=== PATIENT | female | born 1990 | race Caucasian/White ===

== ENCOUNTER 2020-05-28 21:43 | Emergency (ER) | payer SELFPAY ==
[2020-05-28 22:09] VITALS: BP 182/111; PULSE 64; RESP 17; TEMP 36.6; O2SAT 99; BMI 23.0
--- NOTE | 2020-05-28 22:27 | W.ED.ABDPA2 ---
HPI - Abdominal Pain General: Chief Complaint: Abdominal Pain Stated Complaint: abd pain Time Seen by Provider: 05/28/20 22:27 History of Present Illness: HPI narrative: Patient is a 30-year-old female comes to the ED with abdominal pain, nausea and vomiting. Symptoms started at 3:00 this morning. She said it woke her up she had 10 out of 10 abdominal pain in the right and left lower quadrants of the abdomen. Patient says the pain radiates to her back. Patient also has not been able to eat eat or drink or keep anything down. She has had multiple episodes of emesis. Patient says she has a past medical history of IV meth use and was just recently treated for infection at IV drugs today. Denies fever, chills, chest pain, shortness of breath, dysuria, hematuria, vaginal bleeding, vaginal discharge, diarrhea, constipation or blood in stool. Denies any chance of being and says she had her tubes tied after her last . just finished her period a couple days ago. Associated Symptoms: Reports nausea and vomiting; Denies chills, constipation, diarrhea, dysuria, fever(s), hematochezia and hematuria Related Data: Date of Last Menstrual Period: 05/21/20 Review of Systems Const: Denies: fever(s), chills or fatigue Eyes: Denies: change in vision or eye discomfort ENMT: Denies: throat pain, odynophagia, nasal discharge or nasal congestion Card: Denies: chest pain, palpitations, edema, swelling of feet/ankles, dyspnea on exertion or orthopnea Resp: Denies: dyspnea, productive cough or non-productive cough GI: Reports: abdominal pain (lower abdomen and radiates to back), nausea and vomiting; Denies: diarrhea, constipation or hematochezia : Denies: flank pain, dysuria or hematuria Musc: Denies: neck pain, back pain or extremity swelling Skin/Breast: Denies: rash or new lesions Neuro: Denies: headache(s), numbness in extremities or weakness in extremities [facility] ED Female Reproductive History: Date of last menstrual period: 05/21/20 Physical Exam Const: COMMON NORMALS: patient oriented x3 and alert GENERAL APPEARANCE: cooperative; not comfortable (Patient appears uncomfortable due to abdominal pain.) HENMT: COMMON NORMALS: normocephalic HEAD & SCALP: normocephalic MOUTH: Normal oral and palatal mucosa present THROAT: posterior oropharynx normal and uvula midline Eye: COMMON NORMALS: Equal, round and reactive pupils present PUPIL: Yes Equal, round and reactive pupils present Neck/C-Spine: COMMON NORMALS: supple GENERAL: Yes normal visual inspection Resp: COMMON NORMALS: normal respiratory effort, No retractions, No use of accessory muscles and clear to auscultation bilaterally EFFORT & INSPECTION: Yes able to speak in complete sentences, No respiratory distress and No labored AUSCULTATION: clear to auscultation bilaterally Cardio: COMMON NORMALS: regular rate, regular rhythm, S1 normal heart sound present, S2 normal heart sound present, No gallops present (Cardio), No clicks present (Cardio), No murmurs present (Cardio) and Peripheral pulses 2+ throughout RATE: regular rate RHYTHM: regular rhythm HEART SOUNDS: S1 normal heart sound present and S2 normal heart sound present PERIPHERAL PULSES: Peripheral pulses 2+ throughout GI: COMMON NORMALS: Normal to inspection, nondistended, normoactive bowel sounds present, Soft to palpation and no masses PALPATION: Yes Soft to palpation and Yes Tenderness to palpation present (GI) Details: LLQ and RLQ : COMMON NORMALS: Yes no CVA tenderness BLADDER/KIDNEY EXAM: Yes no CVA tenderness Back/Pelvis: COMMON NORMALS: no CVA tenderness Extremity: COMMON NORMALS: normal to inspection and no pedal edema Neuro: COMMON NORMALS: patient oriented x3 SENSORIUM/ORIENTATION: Yes alert GAIT: Yes Normal gait present Skin: GENERAL SKIN EXAM: dry skin Course Reevaluation(s): Reevaluation #1: After patient received IV meds and fluids she was feeling a lot better and her symptoms completely resolved. Patient ready to go home and rest. Vital Signs: Vital signs: Vital Signs Temperature 97.8 F 05/28/20 22:09 Pulse Rate 64 05/28/20 22:09 Respiratory Rate 20 H 05/29/20 00:20 Blood Pressure 182/111 05/28/20 22:09 Pulse Oximetry 98 05/29/20 00:20 MDM - Abdominal Pain MDM Narrative: Medical decision making narrative: Patient is a 30-year-old female who comes to the ED with lower abdominal pain nausea vomiting. Physical exam shows the patient appears to be in some pain and discomfort with mild tenderness upon palpation of the lower abdomen. CBC, CMP and UA were unremarkable. Lipase 32, hCG negative. CT of the abdomen showed no acute findings. Patient was given IV fluids, Zofran and half a milligram of Dilaudid and her symptoms completely resolved. Patient feels a lot better and is ready to go home and rest. Patient was diagnosed with abdominal pain and sent home with a prescription for Zofran to help with any nausea. Return to ED precautions given. Patient understood and agreed with plan. Follow-up with PCP in 7 to 10 days. Lab Data: Attestation: I reviewed the patient's lab results. Labs: Lab Results 05/29/20 05/29/20 05/29/20 Range/Units 01:05 01:05 01:05 WBC 9.8 (4.0-10.0) 10^3/ uL RBC 4.18 (4.1-5.3) 10^6/u L Hgb 12.3 (11.5-15.3) g/dL Hct 42.3 (37.0-47.0) % MCV 101.2 H (81-99) fL MCH 29.4 (28.0-34.0) pg MCHC 29.1 L (30.0-36.0) g/dL RDW 13.2 (12.1-15.1) % Plt Count 306 (130-400) 10^3/c mm MPV 10.0 (7.4-10.4) fL Neut % (Auto) 62.2 % Lymph % (Auto) 30.4 % Morgan % (Auto) 5.6 % Eos % (Auto) 1.1 % Baso % (Auto) 0.4 % Neut # (Auto) 6.12 (1.8-7.7) 10^3/u L Lymph # (Auto) 3.0 (0.8-4.8) 10^3/u L Morgan # (Auto) 0.6 (0.2-0.9) 10^3/u L Eos # (Auto) 0.1 (0.0-0.8) 10^3/u L Baso # (Auto) 0.0 (0.0-0.1) 10^3/u L Nucleated RBC % (a uto) 0 % Nucleated RBCs # 0.0 /100WBC Sodium 138 (136-145) mmol/L Potassium 3.9 (3.5-5.1) mmol/L Chloride 107 (98-107) mmol/L Carbon Dioxide 20 L (22-29) mmol/L Anion Gap 14.9 (5-19) BUN 11 (6-20) mg/dL Creatinine 0.7 (0.5-0.9) mg/dL GFR Calculation 99.6 (90-130) mL/min Glucose 94 (65-115) mg/dL Calculated Osmolal ity 282 L (285-295) mOsm/k g Calcium 8.7 (8.5-10.5) mg/dL Total Bilirubin 0.2 (0.15-1.2) mg/dL AST 14 (0-32) U/L ALT 20 (0-33) U/L Alkaline Phosphata se 106 H (35-105) IU/L Total Protein 5.9 L (6.6-8.7) g/dL Albumin 3.7 (3.5-5.2) g/dL Globulin 2.2 (1.3-4.6) g/dL Lipase 32 (13-60) U/L HCG, Qual Negative (Negative) Urine Color (Yellow) Urine Appearance (CLEAR) Urine pH (5-7) Ur Specific Gravit y (1.005-1.030) Urine Protein (Negative) Urine Glucose (UA) (Normal) Urine Ketones (Negative) Urine Blood (Negative) Urine Nitrate (Negative) Urine Bilirubin (NEGATIVE) Urine Urobilinogen (Negative) mg/dL Ur Leukocyte Elsa ase (Negative) 05/29/20 Range/Units 01:05 WBC (4.0-10.0) 10^3/ uL RBC (4.1-5.3) 10^6/u L Hgb (11.5-15.3) g/dL Hct (37.0-47.0) % MCV (81-99) fL MCH (28.0-34.0) pg MCHC (30.0-36.0) g/dL RDW (12.1-15.1) % Plt Count (130-400) 10^3/c mm MPV (7.4-10.4) fL Neut % (Auto) % Lymph % (Auto) % Morgan % (Auto) % Eos % (Auto) % Baso % (Auto) % Neut # (Auto) (1.8-7.7) 10^3/u L Lymph # (Auto) (0.8-4.8) 10^3/u L Morgan # (Auto) (0.2-0.9) 10^3/u L Eos # (Auto) (0.0-0.8) 10^3/u L Baso # (Auto) (0.0-0.1) 10^3/u L Nucleated RBC % (a uto) % Nucleated RBCs # /100WBC Sodium (136-145) mmol/L Potassium (3.5-5.1) mmol/L Chloride (98-107) mmol/L Carbon Dioxide (22-29) mmol/L Anion Gap (5-19) BUN (6-20) mg/dL Creatinine (0.5-0.9) mg/dL GFR Calculation (90-130) mL/min Glucose (65-115) mg/dL Calculated Osmolal ity (285-295) mOsm/k g Calcium (8.5-10.5) mg/dL Total Bilirubin (0.15-1.2) mg/dL AST (0-32) U/L ALT (0-33) U/L Alkaline Phosphata se (35-105) IU/L Total Protein (6.6-8.7) g/dL Albumin (3.5-5.2) g/dL Globulin (1.3-4.6) g/dL Lipase (13-60) U/L HCG, Qual (Negative) Urine Color Yellow (Yellow) Urine Appearance Clear (CLEAR) Urine pH 6.5 (5-7) Ur Specific Gravit y 1.010 (1.005-1.030) Urine Protein Neg (Negative) Urine Glucose (UA) Norm (Normal) Urine Ketones Negative (Negative) Urine Blood Neg (Negative) Urine Nitrate Negative (Negative) Urine Bilirubin Neg (NEGATIVE) Urine Urobilinogen Norm (Negative) mg/dL Ur Leukocyte Elsa ase Negative (Negative) Imaging Data ^: CT Abd/Pel: Attestation: I personally reviewed and interpreted this imaging study as follows: Radiologist's impression: [address] [address] [address] Scan Report Signed Patient: Katherine Issa Unit #[id number] : 1990 [id number] Age/Sex: 30 / F ADM Date: 05/28/20 Loc: ER Room/Bed: Attending Dr: Ordering Provider/Ordering MD: Leif Good Date of Service: 05/28/20 Procedure(s): CT abdomen pelvis w con* [id number] Accession Number(s): [id number] Report Number: [id number] PROCEDURE INFORMATION: Exam: CT Abdomen And Pelvis With Contrast Exam date and time: 05/28/2020 11:11 PM Age: 30 years old Clinical indication: Nausea and vomiting; Abdominal pain; Generalized; Prior surgery; Surgery type: Cholecystectomy, c-sections x 3; Additional info: Abdominal pain, n/v TECHNIQUE: Imaging protocol: Computed tomography of the abdomen and pelvis with intravenous contrast. Radiation optimization: All CT scans at this facility use at least one of these dose optimization techniques: automated exposure control; mA and/or kV adjustment per patient size (includes targeted exams where dose is matched to clinical indication); or iterative reconstruction. Contrast material: OMNI 300; Contrast volume: 95 ml; Contrast route: INTRAVENOUS (IV); COMPARISON: No relevant prior studies available. RADIATION DOSE METRICS: Total DLP (mGy-cm): 524.19 FINDINGS: Lungs: The lung bases are clear. Liver: The liver appears borderline/mildly enlarged, with right lobe length of about 20 cm. No definite/significant focal hepatic abnormality. Gallbladder and bile ducts: Prior cholecystectomy, no significant biliary tree dilation. Pancreas: Unremarkable. Spleen: Unremarkable. Adrenals: Unremarkable. Kidneys and ureters: Unremarkable. Stomach and bowel: The stomach appears somewhat distended at the time of scanning. Please correlate clinically. There are no CT findings to strongly suggest diverticulitis. Appendix: The appendix is visualized and appears normal. Intraperitoneal space: No free air, ascites, or bowel distention. Vasculature: No evidence for abdominal aortic aneurysm. Lymph nodes: No retroperitoneal adenopathy. Bladder: Unremarkable as visualized. Reproductive: No definite ovarian/adnexal cyst or mass by CT. Moderately prominent vessels in both adnexal regions. This is a nonspecific appearance, pelvic congestion syndrome might be considered. Please correlate clinically. Bones/joints: No significant acute finding. Soft tissues: No significant acute finding. CT/CT abdomen pelvis w con* [id number] IMPRESSION: 1. Normal appendix. 2. No free air or bowel distention. No evidence for bowel obstruction. 3. Somewhat distended stomach. 4. No definite ovarian/adnexal cyst or mass by CT. Moderately prominent vessels in both adnexal regions, see above. 5. Other findings discussed above. Radiation Dose CTDIVOL = (mGy): DLP = 524.19 (mGy-cm) Dictated By: Lul Cunningham MD Signed By: Lul Cunningham MD Signed Date/Time: 05/29/20130 DD/ 9 Discharge Plan Discharge Patient Disposition: Home Clinical Impression: Abdominal pain Qualifiers: Abdominal location: lower abdomen, unspecified Qualified Code(s): R10.30 - Lower abdominal pain, unspecified Condition: Stable Prescriptions: New Zofran 4 mg tablet 4 mg PO Q8H PRN (Reason: nausea and vomiting) Qty: 20 RF: 0 Discharge Orders: Discharge Order (Routine); Ordered 05/29/20 Ordered By: Leif Good Discharge Diet: Regular Discharge Activity: Increase activity as tolerated Patient Instructions: Abdominal Pain (ED) Activity Restrictions/Additional Instructions: Follow-up with medical provider as directed in 7-10 days. Take ibuprofen or Tylenol for any pain. Take prescribed Zofran as needed for any nausea. Drink plenty of fluids and stay hydrated. Return to the ER or your medical provider if condition worsens. Please read and understand discharge instructions. If any questions, please ask. Coding Level of Care Code ED Anaesthetic Technician for Paul Fwd Exam Comprehensive
--- NOTE | 2020-05-28 22:48 | CTR_ITS ---
PROCEDURE INFORMATION: Exam: CT Abdomen And Pelvis With Contrast Exam date and time: 05/28/2020 11:11 PM Age: 30 years old Clinical indication: Nausea and vomiting; Abdominal pain; Generalized; Prior surgery; Surgery type: Cholecystectomy, c-sections x 3; Additional info: Abdominal pain, n/v TECHNIQUE: Imaging protocol: Computed tomography of the abdomen and pelvis with intravenous contrast. Radiation optimization: All CT scans at this facility use at least one of these dose optimization techniques: automated exposure control; mA and/or kV adjustment per patient size (includes targeted exams where dose is matched to clinical indication); or iterative reconstruction. Contrast material: OMNI 300; Contrast volume: 95 ml; Contrast route: INTRAVENOUS (IV); COMPARISON: No relevant prior studies available. RADIATION DOSE METRICS: Total DLP (mGy-cm): 524.19 FINDINGS: Lungs: The lung bases are clear. Liver: The liver appears borderline/mildly enlarged, with right lobe length of about 20 cm. No definite/significant focal hepatic abnormality. Gallbladder and bile ducts: Prior cholecystectomy, no significant biliary tree dilation. Pancreas: Unremarkable. Spleen: Unremarkable. Adrenals: Unremarkable. Kidneys and ureters: Unremarkable. Stomach and bowel: The stomach appears somewhat distended at the time of scanning. Please correlate clinically. There are no CT findings to strongly suggest diverticulitis. Appendix: The appendix is visualized and appears normal. Intraperitoneal space: No free air, ascites, or bowel distention. Vasculature: No evidence for abdominal aortic aneurysm. Lymph nodes: No retroperitoneal adenopathy. Bladder: Unremarkable as visualized. Reproductive: No definite ovarian/adnexal cyst or mass by CT. Moderately prominent vessels in both adnexal regions. This is a nonspecific appearance, pelvic congestion syndrome might be considered. Please correlate clinically. Bones/joints: No significant acute finding. Soft tissues: No significant acute finding. CT/CT abdomen pelvis w con* [id number] IMPRESSION: 1. Normal appendix. 2. No free air or bowel distention. No evidence for bowel obstruction. 3. Somewhat distended stomach. 4. No definite ovarian/adnexal cyst or mass by CT. Moderately prominent vessels in both adnexal regions, see above. 5. Other findings discussed above. Radiation Dose CTDIVOL = (mGy): DLP = 524.19 (mGy-cm)
[2020-05-29] MEDS: sodium chloride 0.9% 1,000 ML 999 ML IV (00:05)
[2020-05-29] MEDS: ondansetron 2 mg/ML SDV 2 mL 4 MG IVP (00:10)
[2020-05-29 00:20] VITALS: RESP 20; O2SAT 98
[2020-05-29] MEDS: HYDROmorphone 1 mg/mL INJ 1 mL 0.5 MG IVP (00:20)
[2020-05-29] MEDS: iohexol 300 mg/mL 100 mL Btl IV (00:42)
[2020-05-29 01:00] VITALS: BP 134/92; PULSE 87; RESP 16; O2SAT 97
[2020-05-29 01:36] LABS: Basophils % 0.4 %; Eosinophils # 0.1 10^3/uL (0.0-0.8); Eosinophils % 1.1 %; Hematocrit 42.3 % (37.0-47.0); Hemoglobin 12.3 g/dL (11.5-15.3); Lymphocytes % 30.4 %; Mean Corpuscular HGB Conc 29.1 g/dL (30.0-36.0); Mean Corpuscular Hemoglobin 29.4 pg (28.0-34.0); Mean Corpuscular Volume 101.2 fL (81-99); Monocytes # 0.6 10^3/uL (0.2-0.9); Monocytes % 5.6 %; Neutrophils # 6.12 10^3/uL (1.8-7.7); Neutrophils % 62.2 %; Nucleated Red Blood Cells % 0 %; Platelet Count 306 10^3/cmm (130-400); Red Blood Count 4.18 10^6/uL (4.1-5.3); Red Cell Distribution Width 13.2 % (12.1-15.1); White Blood Count 9.8 10^3/uL (4.0-10.0)
[2020-05-29 01:40] LABS: Add Urine Microscopic? NO
[2020-05-29 01:43] VITALS: BP 148/98; PULSE 87; RESP 18; O2SAT 98
[2020-05-29 01:49] LABS: Alanine Aminotransferase 20 U/L (0-33); Albumin Level 3.7 g/dL (3.5-5.2); Alkaline Phosphatase 106 IU/L (35-105); Anion Gap 14.9 (5-19); Aspartate Amino Transferase 14 U/L (0-32); Blood Urea Nitrogen 11 mg/dL (6-20); Calcium 8.7 mg/dL (8.5-10.5); Carbon Dioxide 20 mmol/L (22-29); Chloride 107 mmol/L (98-107); Globulin 2.2 g/dL (1.3-4.6); Glomerular Filtration Rate 99.6 mL/min (90-130); Glucose 94 mg/dL (65-115); Lipase 32 U/L (13-60); Osmolality Calculated 282 mOsm/kg (285-295); Potassium 3.9 mmol/L (3.5-5.1); Sodium 138 mmol/L (136-145); Total Bilirubin 0.2 mg/dL (0.15-1.2); Total Protein 5.9 g/dL (6.6-8.7)
[2020-05-29 01:56] LABS: Bilirubin Urine Neg (NEGATIVE); Blood Urine Neg (Negative); Glucose Urine UA Norm (Normal); Ketones Urine Negative (Negative); Leukocyte Esterase Urine Negative (Negative); Nitrate Urine Negative (Negative); Protein Urine Neg (Negative); Urine Appearance Clear (CLEAR); Urine Color Yellow (Yellow); pH Urine 6.5 (5-7)
[2020-05-29 01:57] LABS: HCG, Serum Qual Negative (Negative); Urobilinogen Urine Norm (Negative)
[2020-05-29 02:00] VITALS: BP 137/93; PULSE 88; RESP 16; O2SAT 98
[2020-05-29 02:30] VITALS: BP 137/93; PULSE 88; RESP 16; O2SAT 98
== END 2020-05-29 02:30 | disposition home or self-care (01) ==
PROVIDERS: Emergency Medicine; Emergency Provider Physician Assistant
DX: R10.30 Lower abdominal pain, unspecified (principal)
CPT/HCPCS: 12345; 74177; 80053; 81003; 83690; 84703; 85025; 96361; 96374; 96375; 99282; 99284; J1170; J2405; J7030; Q9967